=== PATIENT | female | born 1945 | race African-American/Black ===

== ENCOUNTER 2022-01-17 09:33 | Outpatient (CLI) | payer MEDICARE ==
[2022-01-17 21:02] LABS: SARS-CoV-2 PCR by NAA Not Detected (NotDetected)
== END 2022-01-17 09:34 | disposition home or self-care (01) ==
LOC: CSHLAB 09:33
PROVIDERS: ATTEND Internal Medicine Gastroenterology
DX: Z20.822 Contact with and (suspected) exposure to COVID-19 (principal)
CPT/HCPCS: U0003; U0005